=== PATIENT | male | born 1955 | race African-American/Black ===

== ENCOUNTER 2018-02-12 23:05 | Emergency (ER) | payer OTHER ==
[~2018-02-12] VITALS: Ht 180.3 cm; Wt 82.0 kg
[2018-02-13 00:03] LABS: CLARITY URINE TURBID (CLEAR); COLOR URINE YELLOW (YELLOW); KETONES URINE TRACE (NEGATIVE); LEUKOCYTE ESTERASE URINE 3+ (NEGATIVE); NITRITE URINE NEGATIVE (NEGATIVE); OCCULT BLOOD URINE 2+ (NEGATIVE); PROTEIN URINE TRACE (NEGATIVE); SPECIFIC GRAVITY URINE 1.008 (1.005-1.030); UROBILINOGEN URINE 0.2 E.U./dL (0.2-1.0)
[2018-02-13] MEDS ORDERED: HYDROCODONE/ACETAMINOPHEN 10/325MG TABLET PO ONE (01:30)
[2018-02-13] MEDS ORDERED: ONDANSETRON HCL 4MG/2ML INJ IV ONE (02:00)
[2018-02-13] MEDS ORDERED: CEFTRIAXONE 1 G PREMIX 50 ML IV NR (02:30)
[2018-02-13 02:35] LABS: BASOPHILS % 0.4 % (0.0-2.0); HEMATOCRIT. 44.9 % (42.0-52.0); HEMOGLOBIN. 14.9 g/dL (14.0-18.0); LYMPHOCYTES % 11.2 % (20.0-50.0); MEAN CORPUSCULAR HEMOGLOBIN 29.7 pg (28.0-32.0); MEAN CORPUSCULAR VOLUME 89.4 fL (80.0-94.0); MEAN PLATELET VOLUME 7.8 fl (7.4-10.4); MONOCYTES % 9.7 % (2.0-8.0); NEUTROPHILS % 78.7 % (40.0-76.0); PLATELET 317 x1000/uL (130-400); RED BLOOD CELL COUNT 5.02 mill/uL (4.7-6.1); RED CELL DISTRIBUTION WIDTH 14.7 % (11.6-14.6)
[2018-02-13 02:36] LABS: CHLORIDE 107 mEq/L (98-107)
[2018-02-13 02:41] LABS: INR 1.1; PROTHROMBIN TIME 10.6 sec (9.1-11.1)
[2018-02-13 04:00] VITALS: BP 110/63
== END 2018-02-13 04:44 | disposition home or self-care (01) ==
LOC: ER 23:05
DX: N39.0 Urinary tract infection, site not specified (principal); F17.200 Nicotine dependence, unspecified, uncomplicated; F12.10 Cannabis abuse, uncomplicated; Z88.6 Allergy status to analgesic agent; Z98.890 Other specified postprocedural states
CPT/HCPCS: 36415; 51702; 80053; 81003; 85025; 85610; 87086; 96365; 96375; 99284; J0696; J2405

== ENCOUNTER 2018-12-15 12:41 | Emergency (ER) | payer OTHER ==
[~2018-12-15] VITALS: Ht 175.3 cm; Wt 79.0 kg
[2018-12-15 13:35] LABS: CLARITY URINE CLOUDY (CLEAR); COLOR URINE RED (YELLOW); KETONES URINE NEGATIVE (NEGATIVE); LEUKOCYTE ESTERASE URINE 2+ (NEGATIVE); NITRITE URINE NEGATIVE (NEGATIVE); OCCULT BLOOD URINE 3+ (NEGATIVE); PROTEIN URINE 2+ (NEGATIVE); SPECIFIC GRAVITY URINE 1.007 (1.005-1.030); UROBILINOGEN URINE 0.2 E.U./dL (0.2-1.0)
[2018-12-15] MEDS ORDERED: LEVOFLOXACIN 250MG TABLET PO ONE (14:45)
[2018-12-15] MEDS ORDERED: OXYCODONE HCL/ACETAMINOPHEN 5/325MG TABLET PO ONE (14:45)
[2018-12-15 16:35] VITALS: BP 142/73
== END 2018-12-15 16:34 | disposition home or self-care (01) ==
LOC: ER 12:41
DX: N39.0 Urinary tract infection, site not specified (principal); N40.1 Benign prostatic hyperplasia with lower urinary tract symptoms; R33.8 Other retention of urine; F12.10 Cannabis abuse, uncomplicated; F11.10 Opioid abuse, uncomplicated
CPT/HCPCS: 81003; 99284; A4315

== ENCOUNTER 2020-05-09 21:11 | Emergency (ER) | payer BC, MEDICAID ==
[~2020-05-09] VITALS: Ht 180.3 cm; Wt 77.0 kg
[2020-05-09] MEDS ORDERED: OXYMETAZOLINE HCL NASAL SPRAY 15ML BOTHNSTRLS PRN (22:45)
[2020-05-09] MEDS ORDERED: IBUPROFEN 400MG TABLET PO ONE (23:00)
[2020-05-09 23:20] VITALS: BP 141/98
[2020-05-09] MEDS ORDERED: IBUP-2028 MT (23:28)
== END 2020-05-09 23:37 | disposition home or self-care (01) ==
LOC: ER 21:11
DX: R03.0 Elevated blood-pressure reading, without diagnosis of hypertension (principal); R04.0 Epistaxis; M70.21 Olecranon bursitis, right elbow; Y93.89 Activity, other specified; Z87.891 Personal history of nicotine dependence; Z88.8 Allergy status to other drugs, medicaments and biological substances; Z98.890 Other specified postprocedural states
CPT/HCPCS: 99283

== ENCOUNTER 2021-07-18 18:36 | Emergency (ER) | payer BC, MEDICAID ==
[~2021-07-18] VITALS: Ht 175.3 cm; Wt 75.0 kg
[~2021-07-18 18:36] MED LIST: IBUP-2028 MT
[2021-07-18 20:43] LABS: CLARITY URINE CLOUDY (CLEAR); COLOR URINE YELLOW (YELLOW); SPECIFIC GRAVITY URINE 1.015 (1.005-1.030)
[2021-07-18 20:44] LABS: KETONES URINE NEGATIVE (NEGATIVE); LEUKOCYTE ESTERASE URINE 2+ (NEGATIVE); NITRITE URINE POSITIVE (NEGATIVE); OCCULT BLOOD URINE 3+ (NEGATIVE); PROTEIN URINE 3+ (NEGATIVE); UROBILINOGEN URINE 0.2 E.U./dL (0.2-1.0)
[2021-07-18 21:13] VITALS: BP 139/85
[2021-07-18] MEDS ORDERED: FENTANYL CITRATE/PF 50MCG/ML 2ML VIAL IV ONE (21:15)
[2021-07-18] MEDS ORDERED: SULF1TAB48 PO (22:23)
== END 2021-07-18 22:52 | disposition home or self-care (01) ==
LOC: ER 18:36
DX: R10.9 Unspecified abdominal pain (principal); Z98.890 Other specified postprocedural states; Z79.899 Other long term (current) drug therapy
CPT/HCPCS: 81003; 87077; 87086; 87186; 96374; 99283; J3010